=== PATIENT | female | born 1965 | race Caucasian/White ===

== ENCOUNTER → 2017-10-26 | Outpatient (CLI) | payer BC ==
[~2017-10-26] MED LIST: ALBUTEROL-200 PUFFS/ IH; AMOXICILLIN 50500 MG PO; BISOPROLOL FUMA10 MG PO; BISOPROLOL/HCTZ1 TA2 PO; CIPRO 500MG TA500 MG PO; CLARITIN10 MG PO; CYCLOBENZ5 MG PO; DICLOFENAC 50MG50 MG PO; EFFEXOR75 MG PO; ENABLEX7.5 MG PO; FLEXERIL10 MG PO; FLONASE 50 MCG16 GM; GABAPENTIN100 M1 PO; HYDRALAZINE10 M1 PO; HYDROXYZINE50 MG PO; LISINOPRIL10 MG PO; MEDROL 4MG. DOSE4 MG PO; MELOXICAM15 MG PO; MOTRIN 400MG.400 MG PO; NAPROSYN 500MG500 MG PO; NAPROSYN500 M1 PO; NEXIUM40 MG PO; NOMEDS XX; OMEPRAZOLE40 MG PO; OXYBUTYNIN5 MG PO; PREDNISONE 20MG20 MG PO; PROAIR HFA0.09 MG/AC IH; ROBAXIN-750750 MG PO; TESSALON PERLE100 M1 PO; TRAMADOL 50MG T50 MG PO; ZITHROMAX Z PA250 MG PO; ZOLOFT25 MG PO
--- NOTE | 2017-10-26 16:16 | RADIOLOGY REPORT PS360 ---
ELBOW-RT-3 VIEWS HISTORY: Recent injury with pain RT ELBOW PAIN ORDERING PHYSICIAN: ELYSE DAY APRN PATIENT AGE: 51 years COMPARISON: None FINDINGS: There is a faint area of calcific density along the lateral epicondyle which may be related to old ligamentous injury. No definite acute fracture or dislocation. No evidence of displaced fat pad. IMPRESSION: Suspect old ligamentous injury of the lateral epicondylar region otherwise negative
== END ==
LOC: RAD 15:56
DX: M25.521 Pain in right elbow (principal)